=== PATIENT | female | born 2005 | race African-American/Black ===

== ENCOUNTER 2025-01-04 15:54 | Emergency (ER) | payer MEDICAID, OTHER ==
[~2025-01-04] VITALS: Ht 165.1 cm; Wt 88.7 kg
--- NOTE | 2025-01-04 16:19 | ED.PDOC ---
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 Patient reports using the restroom and when wiping, saw a moderate amount of blood in the tissue paper and in the toilet. Patient reports she is about 6 weeks , [facility] by [facility] and had a SERVICE ORDER EXPEDITER history of . Patient also complains of 5/10 right sided abdominal right upper quadrant and right flank burning/cramping, and mild dysuria for the past couple of days in which she told the staff at [facility] but was told it was normal due to . Patient denies passing any clots or tissue, denies having to use a pad, denies fever, chills, dysuria, nausea, vomiting or diarrhea. Patient denies any medical history or allergies. Chief Complaint: Vaginal Bleed Time Seen by MD: 16:07 Reviewed Notes: Nurses Notes, Medications, Allergies Allergies: Coded Allergies: NO KNOWN ALLERGIES (Unverified , 01/04/25) Home Meds Active Scripts Acetaminophen (Tylenol Extra Strength) 500 Mg Tab, 1000 MG PO Q6HP PRN, #30 TAB prn pain Prov:LEYDA PHILLIPS MD 01/04/25 Cephalexin Monohydrate (Cephalexin) 500 Mg Cap, 1 CAP PO QID for 10 Days, #40 CAP Prov:LEYDA PHILLIPS MD 01/04/25 Information Source: Patient Mode of Arrival: Ambulatory Timing: Hours Severity: Moderate Vaginal Discharge: None Vaginal Lesions: None Bleeding Quality: Dark Vaginal Mass: None Onset Of Mass/Bleeding: Spontaneous Sexual Activity: Last Consensual Arabi: Unknown Control: None History of: Current Blood Type: Unknown Associated Signs and Symptoms: Vaginal Bleeding, Abdominal Pain, Cramping Past Medical History PAST MEDICAL HISTORY: Denies Surgical History: Denies all surgeries SERVICE ORDER EXPEDITER History: No Pertinent SERVICE ORDER EXPEDITER History 1 Para 0 Family History Family History: Reviewed,noncontributory to illness Social History Smoker: Non-Smoker Alcohol: Denies ETOH Use Drugs: Denies Drug Use Lives In: Home Constitutional: denies: chills, diaphoresis, fatigue, fever, malaise, sweats, weakness, others EENTM: denies: blurred vision, double vision, ear bleeding, ear discharge, ear drainage, ear pain, ear ringing, eye pain, eye redness, hearing loss, mouth pain, mouth swelling, nasal discharge, nose bleeding, nose congestion, nose pain, photophobia, tearing, throat pain, throat swelling, voice changes, others Respiratory: denies: cough, hemoptysis, orthopnea, SOB at rest, shortness of breath, SOB with excertion, stridor, wheezing, others Cardiovascular: denies: chest pain, dizzy spells, diaphoresis, Dyspnea on exertion, edema, irregular heart beat, left arm pain, lightheadedness, palpitations, PND, syncope, others Gastrointestinal: reports: abdominal pain; denies: abdomen distended, blood streaked bowels, constipated, diarrhea, dysphagia, difficulty swallowing, hematemesis, melena, nausea, poor appetite, poor fluid intake, rectal bleeding, rectal pain, vomiting, others Genitourinary: reports: abnormal vagina bleeding, ; denies: burning, dyspareunia, dysuria, flank pain, frequency, hematuria, incontinence, pain, vagina discharge, urgency, others Neurological: denies: dizziness, fainting, headache, left sided numbness, left sided weakness, numbness, paresthesia, pre-existing deficit, right sided numbness, right sided weakness, seizure, speech problems, tingling, tremors, weakness, others Musculoskeletal: denies: back pain, gout, joint pain, joint swelling, muscle pain, muscle stiffness, neck pain, others Integumetry: denies: bruises, change in color, change in hair/nails, dryness, laceration, lesions, lumps, rash, wounds, others Allergic/Immunocompromised: denies: Difficulty Healing, Frequent Infections, Hives, Itching, others Hematologic/Lymphatic: denies: anemia, blood clots, easy bleeding, easy bruising, swollen glands, others Endocrine: denies: excessive hunger, excessive sweating, excessive thirst, excessive urination, flushing, intolerance to cold, intolerance to heat, unexplained weight gain, unexplained weight loss, others Psychiatric: denies: anxiety, bipolar disorder, depression, hopeless, panic disorder, schizophrenia, sleepless, suicidal, others All Other Systems: Reviewed and Negative Physical Exam General Appearance: No Apparent Distress, Obese HEENT: Other (Pupils and face symmetric. Moist mucous membranes.) Neck: Full Range of Motion, Normal Inspection Respiratory: Lungs Clear, No Accessory Muscle Use, No Respiratory Distress, Normal Breath Sounds Cardiovascular: No Edema, No JVD, Regular Rate/Rhythm Breast Exam: Deferred Gastrointestinal: RUQ, Soft, Tenderness (Right mid abdominal) Genitalia: Deferred Pelvic: Deferred Rectal: Deferred Extremities: Normal inspection, Normal range of motion, Non-tender, No pedal edema Neurologic: Alert (Oriented x4), Normal Affect, Normal Mood, Other (Ambulatory without difficulty) Cerebellar Function: NOT DONE Reflexes: NOT DONE Skin: Dry, Normal Color, Warm Lymphatic: NOT DONE Was a procedure done? Was a procedure done?: No Differential Diagnosis (SERVICE ORDER EXPEDITER) Vaginal Bleeding: - Complete, - Incomplete, - Inevitable, - Missed, Ectopic , Menstrual Bleeding, UTI X-Ray, Labs, Meds, VS Vital Signs Date Time Temp Pulse Resp B/P (MAP) Pulse Ox O2 Delivery O2 Flow Rate FiO2 01/04/25 20:24 99.0 76 23 113/76 (88) 98 99.0 01/04/25 20:23 20 98 Room Air* 0 21 01/04/25 16:10 98.2 83 18 140/94 (109) 96 98.2 Lab Test 01/04/25 16:40 01/04/25 16:10 Range/Units White Blood Count 9.1 4.4-10.8 10^3/uL Red Blood Count 5.14 4.0-5.20 10^6/uL Hemoglobin 14.1 12.2-16.2 g/dL Hematocrit 41.7 36.0-46.0 % Mean Corpuscular Volume 81.1 80.0-100.0 fL Mean Corpuscular Hemoglobin 27.5 L 28.0-32.0 pg Mean Corpuscular Hemoglobin Concent 33.9 32.0-36.0 g/dL Red Cell Distribution Width 13.5 11.8-14.3 % Platelet Count 298 140-450 10^3/uL Mean Platelet Volume 7.0 6.9-10.8 fL Neutrophils (%) (Auto) 62.2 37.0-80.0 % Lymphocytes (%) (Auto) 25.1 10.0-50.0 % Monocytes (%) (Auto) 9.5 0.0-12.0 % Eosinophils (%) (Auto) 2.7 0.0-7.0 % Basophils (%) (Auto) 0.5 0.0-2.0 % Neutrophils # (Auto) 5.7 1.6-8.6 10 ^3/uL Lymphocytes # (Auto) 2.3 0.4-5.4 10 ^3/uL Monocytes # (Auto) 0.9 0-1.3 10 ^3/uL Eosinophils # (Auto) 0.2 0-0.8 10 ^3/uL Basophils # (Auto) 0 0-0.2 10 ^3/uL Nucleated Red Blood Cells 0.1 % Sodium Level 137 136-145 mmol/L Potassium Level 3.7 3.5-5.1 mmol/L Chloride Level 105 98-107 mmol/L Carbon Dioxide Level 23 20-31 mmol/L Anion Gap 9 5-15 Blood Urea Nitrogen 7 L 9-23 mg/dL Creatinine 0.70 0.550-1.02 mg/dL Glomerular Filtration Rate Calc 127 >90 mL/min BUN/Creatinine Ratio 10.0 10.0-20.0 Serum Glucose 76 74-106 mg/dL Calcium Level 9.8 8.7-10.4 mg/dL Beta HCG, Quantitative 14254.8 H 1.5-4.2 mIU/mL Urine Color Light-yellow Yellow Urine Clarity Turbid H Clear Urine pH 7.0 5.0-9.0 Urine Specific Firestone 1.024 1.001-1.035 Urine Protein Trace H Negative Urine Ketones Negative Negative Urine Blood Negative Negative /uL Urine Nitrite Negative Negative Urine Bilirubin Negative Negative Urine Urobilinogen Normal Negative mg/dL Urine Leukocyte Esterase 3+ Negative /uL Urine RBC 6 0 - 4 /hpf Urine Microscopic WBC 115 H 0-5 /HPF Urine Squamous Epithelial Cells Few <5 /hpf Urine Bacteria Few H None Seen /hpf Urine Mucus Few None Seen Urine Glucose Normal Normal mg/dL Current Medications Medications (Trade) Dose Ordered Sig/Jeevan Route Start Time Stop Time Status Last Admin Ceftriaxone Sodium (Rocephin) 1,000 mg ONCE ONCE IM 01/04/25 18:00 01/04/25 18:01 DC 01/04/25 20:31 Lidocaine HCl (Xylocaine 1%) 2.1 ml ONCE ONCE IJ 01/04/25 20:30 01/04/25 20:31 DC 01/04/25 20:31 PROCEDURE(s): RTLQD - RIGHT LOWER QUAD REASON: RLQ r/o appy ORDER NUMBER(s): [id number], ACCESSION NUMBER(s): [id number] INDICATION: RLQ r/o appy TECHNIQUE: Graded compression technique along with Multiple real-time sonographic images were obtained for evaluation of the right lower quadrant. FINDINGS: The appendix was not visualized. No free fluid or lymph nodes are seen on this exam. IMPRESSION: Nonvisualization of the appendix, thus cannot exclude appendicitis. EDURE(s): OB4US - OB ULTRASOUND COMP LESS 14WKS REASON: 6 wk preg, vag bleed ORDER NUMBER(s): [id number], ACCESSION NUMBER(s): [id number] OB ULTRASOUND <14 WEEKS: HISTORY: 6 wk preg, vag bleed TECHNIQUE: Ultrasound Ob less than 14 weeks. Multiple real-time grayscale sonographic images of the pelvis with duplex Doppler color flow, spectral and M- mode analysis. TRANSDUCERS: Transabdominal FINDINGS: The uterus measures 8.2 x 4.1 x 6.2 cm. Endometrium 21 mm. The cervix not measured Right ovary measures 4 x 3.4 x 2 cm. Right ovarian volume is 14 cc with normal Doppler color flow Left ovary measures 3.5 x 3.4 x 3.2 cm. There is an anechoic mass in the left ovary measuring 1.8 x 1.7 x 1.5 cm. There is a volume of the left ovary is 20 cc. Normal Doppler color flow of the left ovary. Gestational sac noted in the uterus measuring 1.56 cm. This is consistent with 5 weeks 6 days. heart rate not detected at this time.. Yolk sac questionably seen. Amniotic fluid adequate IMPRESSION: 1. No pole or heart rate noted at this time. 2. Gestational sac is consistent with 6 weeks 1 day. X-Ray, Labs, Meds, VS Comment [age] year old female with history of current approximate 6 week brought in by self for evaluation of vaginal bleeding and dysuria Vitals remarkable for BP 140/94 Exam remarkable for right upper quadrant and right mid abdominal tenderness to palpation Rhythm strip independently interpreted by me: Sinus rhythm, rate 83, no ectopy. Right Lower quadrant ultrasound: IMPRESSION: Nonvisualization of the appendix, thus cannot exclude appendicitis. Ob ultrasound: IMPRESSION: 1. No pole or heart rate noted at this time. 2. Gestational sac is consistent with 6 weeks 1 day. Note, patient refused transvaginal ultrasound, so Ob ultrasound was performed transabdominally. CBC, basic metabolic panel unremarkable for any abnormality of acute significance. Serum quantitative hCG 15331.8, UA positive for 115 white blood cells, leukocyte esterase and few bacteria consistent with UTI Patient treated with the following in the ED: Tylenol 1 g p.o., Rocephin 1 g IM On re-evaluation, patient states she is comfortable. Vitals were stable. Repeat abdominal exam is benign. Workup findings could be consistent with early normal , ectopic or demise/miscarriage. Patient appears stable for discharge with close outpatient follow-up with marina manager in 2 days for repeat ultrasound and repeat serum quantitative hCG. Patient will be referred to Dr. Roche. Rx Keflex, Tylenol Time of 1ST Reevaluation: 16:18 Reevaluation 1ST: Unchanged Time of 2ND Reevaluation: 19:30 Reevaluation 2ND: Improved Patient Education/Counseling: Diagnosis, Treatment, Prognosis Family Education/Counseling: No Family Present Departure 1 Departure Time of Disposition: 17:50 Impression: Primary Impression: UTI (urinary tract infection) Qualified Codes: N39.0 - Urinary tract infection, site not specified; R31.9 - Hematuria, unspecified Additional Impression: Vaginal bleeding affecting early Disposition: 01 HOME / SELF CARE / HOMELESS Condition: Stable Referrals: YARELY ROCHE DO Additional Instructions: Your blood tests were unremarkable. Your urine test showed you have a urinary tract infection. Your did not show a inside the uterus, however it may be too early to see the . I have enclosed the report below. I have prescribed antibiotics and pain medication. Follow-up with your OBGYN in 1-2 days. If you do not have an OBGYN, follow-up with Dr. Roche establish care. [address] [address] Ph: [phone] DIAGNOSTIC IMAGING Diagnostic Imaging Report : [id number] Signed PATIENT: CARLTON SINCLAIR ACCT: [id number] UNIT: [id number] : 2005 LOC: ER ROOM / BED: / AGE / SEX: 19 / F ADM STATUS: REG ER SERVICE 1614 ORDERING PHYSICIAN: LEYDA PHILLIPS MD PROCEDURE(s): OB4US - OB ULTRASOUND COMP LESS 14WKS REASON: 6 wk preg, vag bleed ORDER NUMBER(s): [id number], ACCESSION NUMBER(s): [id number] OB ULTRASOUND <14 WEEKS: HISTORY: 6 wk preg, vag bleed TECHNIQUE: Ultrasound Ob less than 14 weeks. Multiple real-time grayscale sonographic images of the pelvis with duplex Doppler color flow, spectral and M- mode analysis. TRANSDUCERS: Transabdominal FINDINGS: The uterus measures 8.2 x 4.1 x 6.2 cm. Endometrium 21 mm. The cervix not measured Right ovary measures 4 x 3.4 x 2 cm. Right ovarian volume is 14 cc with normal Doppler color flow Left ovary measures 3.5 x 3.4 x 3.2 cm. There is an anechoic mass in the left ovary measuring 1.8 x 1.7 x 1.5 cm. There is a volume of the left ovary is 20 cc. Normal Doppler color flow of the left ovary. Gestational sac noted in the uterus measuring 1.56 cm. This is consistent with 5 weeks 6 days. heart rate not detected at this time.. Yolk sac questionably seen. Amniotic fluid adequate IMPRESSION: 1. No pole or heart rate noted at this time. 2. Gestational sac is consistent with 6 weeks 1 day. e-Prescriptions Acetaminophen (Tylenol Extra Strength) 500 Mg Tab 1000 MG PO Q6HP PRN, #30 TAB prn pain Prov: LEYDA PHILLIPS MD 01/04/25 Cephalexin Monohydrate (Cephalexin) 500 Mg Cap 1 CAP PO QID for 10 Days, #40 CAP Prov: LEYDA PHILLIPS MD 01/04/25 Discharged With: Relative Critical Care Note Critical Care Time?: No Stability Stability form required: No I personally scribed for LEYDA PHILLIPS MD ([facility] on 01/04/25 at 16:19. Electronically submitted by Anastasia Mcclain ([facility]). LEYDA PHILLIPS MD January 04, 2025 16:19
[2025-01-04 16:37] LABS: Urine Bacteria FEW /hpf (None Seen); Urine Blood Negative /uL (Negative); Urine Clarity Turbid (Clear); Urine Color Light-Yellow (Yellow); Urine Mucus FEW (None Seen); Urine Protein, UAD TRACE (Negative); Urine Specific Gravity 1.024 (1.001-1.035); Urine Squamous Epithelial Cell FEW /hpf (<5); Urine Urobilinogen Normal (Negative); Urine WBC 115 /HPF (0-5)
[2025-01-04 16:57] LABS: Basophils # (auto) 0 10 ^3/uL (0-0.2); Basophils % (auto) 0.5 % (0.0-2.0); Eosinophils # (auto) 0.2 10 ^3/uL (0-0.8); Eosinophils % (auto) 2.7 % (0.0-7.0); Hematocrit 41.7 % (36.0-46.0); Hemoglobin 14.1 g/dL (12.2-16.2); Lymphocytes # (auto) 2.3 10 ^3/uL (0.4-5.4); Lymphocytes % (auto) 25.1 % (10.0-50.0); Mean Corpuscular Hemoglobin 27.5 pg (28.0-32.0); Mean Corpuscular Hgb Conc. 33.9 g/dL (32.0-36.0); Mean Corpuscular Volume 81.1 fL (80.0-100.0); Monocytes # (auto) 0.9 10 ^3/uL (0-1.3); Monocytes % (auto) 9.5 % (0.0-12.0); Neutrophils # (auto) 5.7 10 ^3/uL (1.6-8.6); Neutrophils % (auto) 62.2 % (37.0-80.0); Nucleated Red Blood Cells % 0.1 %; Platelet Count (auto) 298 10^3/uL (140-450); Red Blood Cells 5.14 10^6/uL (4.0-5.20); Red Cell Distribution Width 13.5 % (11.8-14.3); White Blood Cell 9.1 10^3/uL (4.4-10.8)
[2025-01-04 17:04] LABS: Chloride 105 mmol/L (98-107); Potassium 3.7 mmol/L (3.5-5.1); Sodium 137 mmol/L (136-145)
[2025-01-04 17:05] LABS: Anion Gap 9 (5-15); Calcium 9.8 mg/dL (8.7-10.4); Carbon Dioxide 23 mmol/L (20-31)
[2025-01-04 17:10] LABS: Glucose 76 mg/dL (74-106)
[2025-01-04 17:19] LABS: Blood Urea Nitrogen 7 mg/dL (9-23)
[2025-01-04] MEDS ORDERED: CEPH500C PO (17:53)
[2025-01-04] MEDS ORDERED: ACET-1304 PO (17:53)
--- NOTE | 2025-01-04 19:17 | DVH ---
OB ULTRASOUND <14 WEEKS: HISTORY: 6 wk preg, vag bleed TECHNIQUE: Ultrasound Ob less than 14 weeks. Multiple real-time grayscale sonographic images of the pelvis with duplex Doppler color flow, spectral and M-mode analysis. TRANSDUCERS: Transabdominal FINDINGS: The uterus measures 8.2 x 4.1 x 6.2 cm. Endometrium 21 mm. The cervix not measured Right ovary measures 4 x 3.4 x 2 cm. Right ovarian volume is 14 cc with normal Doppler color flow Left ovary measures 3.5 x 3.4 x 3.2 cm. There is an anechoic mass in the left ovary measuring 1.8 x 1 .7 x 1.5 cm. There is a volume of the left ovary is 20 cc. Normal Doppler color flow of the left ov rosibel. Gestational sac noted in the uterus measuring 1.56 cm. This is consistent with 5 weeks 6 days. heart rate not detected at this time.. Yolk sac questionably seen. Amniotic fluid adequate IMPRESSION: 1. No pole or heart rate noted at this time. 2. Gestational sac is consistent with 6 weeks 1 day.
--- NOTE | 2025-01-04 19:19 | DVH ---
INDICATION: RLQ r/o appy TECHNIQUE: Graded compression technique along with Multiple real-time sonographic images were obtain ed for evaluation of the right lower quadrant. FINDINGS: The appendix was not visualized. No free fluid or lymph nodes are seen on this exam. IMPRESSION: Nonvisualization of the appendix, thus cannot exclude appendicitis.
[2025-01-04 20:23] VITALS: RESP 20; O2SAT 98
[2025-01-04 20:24] VITALS: BP 113/76; PULSE 76; RESP 23; TEMP 99; O2SAT 98
[2025-01-04] MEDS: ACETAMINOPHEN 500 MG TAB or CAP PO ONE (20:26)
[2025-01-04] MEDS: LIDOCAINE 1% HCL (LOCAL ANESTH.) INJ 20ML MDV IJ ONE (20:31)
[2025-01-04] MEDS: cefTRIAXone SOD 1,000 MG VL IM ONE (20:31)
== END 2025-01-04 20:36 | disposition home or self-care (01) ==
LOC: ER 15:54
DX: O23.41 Unspecified infection of urinary tract in pregnancy, first trimester (principal); O20.0 Threatened abortion; N39.0 Urinary tract infection, site not specified; O20.9 Hemorrhage in early pregnancy, unspecified; Z3A.01 Less than 8 weeks gestation of pregnancy; Z79.899 Other long term (current) drug therapy
CPT/HCPCS: 36415; 76705; 76801; 80048; 81001; 84702; 85025; 86900; 86901; 96372; 99285; J0696; J2003

== ENCOUNTER 2025-01-22 11:47 | Emergency (ER) | payer MEDICAID ==
[~2025-01-22] VITALS: Ht 162.6 cm; Wt 89.7 kg
[~2025-01-22 11:47] MED LIST: ACET-1304 PO; CEPH500C PO
[2025-01-22 12:15] LABS: Basophils # (auto) 0 10 ^3/uL (0-0.2); Basophils % (auto) 0.4 % (0.0-2.0); Eosinophils # (auto) 0.2 10 ^3/uL (0-0.8); Eosinophils % (auto) 3.1 % (0.0-7.0); Hematocrit 41.3 % (36.0-46.0); Hemoglobin 13.9 g/dL (12.2-16.2); Lymphocytes # (auto) 1.4 10 ^3/uL (0.4-5.4); Lymphocytes % (auto) 17.8 % (10.0-50.0); Mean Corpuscular Hemoglobin 27.7 pg (28.0-32.0); Mean Corpuscular Hgb Conc. 33.7 g/dL (32.0-36.0); Mean Corpuscular Volume 82.1 fL (80.0-100.0); Monocytes # (auto) 0.5 10 ^3/uL (0-1.3); Monocytes % (auto) 6.6 % (0.0-12.0); Neutrophils # (auto) 5.6 10 ^3/uL (1.6-8.6); Neutrophils % (auto) 72.1 % (37.0-80.0); Nucleated Red Blood Cells % 0.2 %; Platelet Count (auto) 289 10^3/uL (140-450); Red Blood Cells 5.03 10^6/uL (4.0-5.20); White Blood Cell 7.7 10^3/uL (4.4-10.8)
[2025-01-22] MEDS: SODIUM CHLORIDE 0.9% 1,000 ML IV ONE (12:39)
[2025-01-22] MEDS: ONDANSETRON HCL 4 MG/2 ML VIAL IV ONE (12:40)
[2025-01-22 12:41] VITALS: BP 112/76; PULSE 82; RESP 14; TEMP 98.1; O2SAT 98
--- NOTE | 2025-01-22 12:42 | ED.PDOC ---
WILDERNESS GUIDE HPI Comments A 19 YEAR OLD FEMALE PRESENTS TO THE ED WITH CHIEF COMPLAINT OF VAGINAL BLEEDING DURING . PATIENT REPORTS THAT SHE HAD BEEN EXPERIENCING A WEEK OF VAGINAL SPOTTING, BUT FOR THE PAST 3 DAYS IT STARTED TO BECOME MILD VAGINAL BLEEDING. PATIENT RELAYS THAT SHE IS ABOUT 8 WEEKS . PATIENT NOTES ASSOCIATED SYMPTOMS OF NAUSEA AND VOMITING. PATIENT DENIES ANY ABDOMINAL PAIN, DIZZINESS, FEVER, CHILLS, DYSURIA, HEMATURIA, OR ANY FURTHER SYMPTOMS AT THIS TIME. Chief Complaint: Vaginal Bleed Time Seen by MD: 12:39 Reviewed Notes: Nurses Notes, Medications, Allergies Allergies: Coded Allergies: NO KNOWN ALLERGIES (Unverified , 01/04/25) Home Meds Active Scripts Nitrofurantoin Monohydrate Mac (Macrobid) 100 Mg Cap, 100 MG PO BID, #16 CAP Prov:MARVA DIAZ 01/22/25 Ondansetron Odt 4MG Tab (ZOFRAN PO) 4 Mg Tb, 4 MG PO BID, #20 TAB ODT TAB-DISSOLVE IN MOUTH, THEN SWALLOW Prov:MARVA DIAZ 01/22/25 Acetaminophen (Tylenol Extra Strength) 500 Mg Tab, 1000 MG PO Q6HP PRN, #30 TAB prn pain Prov:LEYDA PHILLIPS MD 01/04/25 Cephalexin Monohydrate (Cephalexin) 500 Mg Cap, 1 CAP PO QID for 10 Days, #40 CAP Prov:LEYDA PHILLIPS MD 01/04/25 Information Source: Patient Mode of Arrival: Ambulatory Timing: Weeks Prehospital treatment: None Severity: Moderate Vaginal Discharge: None Vaginal Lesions: None Bleeding Quality: Bright Red Vaginal Mass: None Onset Of Mass/Bleeding: Spontaneous Sexual Activity: Last Consensual [place]: Unknown Control: None History of: Current Blood Type: Unknown Associated Signs and Symptoms: Vaginal Bleeding Past Medical History PAST MEDICAL HISTORY: Denies Surgical History: Denies all surgeries RANCH COOK History: No Pertinent RANCH COOK History Family History Family History: Reviewed,noncontributory to illness Social History Smoker: Non-Smoker Alcohol: Denies ETOH Use Drugs: Denies Drug Use Lives In: Home Constitutional: denies: chills, diaphoresis, fatigue, fever, malaise, sweats, weakness, others EENTM: denies: blurred vision, double vision, ear bleeding, ear discharge, ear drainage, ear pain, ear ringing, eye pain, eye redness, hearing loss, mouth pain, mouth swelling, nasal discharge, nose bleeding, nose congestion, nose pain, photophobia, tearing, throat pain, throat swelling, voice changes, others Respiratory: denies: cough, hemoptysis, orthopnea, SOB at rest, shortness of breath, SOB with excertion, stridor, wheezing, others Cardiovascular: denies: chest pain, dizzy spells, diaphoresis, Dyspnea on exertion, edema, irregular heart beat, left arm pain, lightheadedness, palpitations, PND, syncope, others Gastrointestinal: reports: nausea, vomiting; denies: abdomen distended, abdominal pain, blood streaked bowels, constipated, diarrhea, dysphagia, dif ficulty swallowing, hematemesis, melena, poor appetite, poor fluid intake, rectal bleeding, rectal pain, others Genitourinary: reports: abnormal vagina bleeding, ; denies: burning, dyspareunia, dysuria, flank pain, frequency, hematuria, incontinence, pain, vagina discharge, urgency, others Neurological: denies: dizziness, fainting, headache, left sided numbness, left sided weakness, numbness, paresthesia, pre-existing deficit, right sided numbness, right sided weakness, seizure, speech problems, tingling, tremors, weakness, others Musculoskeletal: denies: back pain, gout, joint pain, joint swelling, muscle pain, muscle stiffness, neck pain, others Integumetry: denies: bruises, change in color, change in hair/nails, dryness, laceration, lesions, lumps, rash, wounds, others Allergic/Immunocompromised: denies: Difficulty Healing, Frequent Infections, Hives, Itching, others Hematologic/Lymphatic: denies: anemia, blood clots, easy bleeding, easy bruising, swollen glands, others Endocrine: denies: excessive hunger, excessive sweating, excessive thirst, excessive urination, flushing, intolerance to cold, intolerance to heat, unexplained weight gain, unexplained weight loss, others Psychiatric: denies: anxiety, bipolar disorder, depression, hopeless, panic disorder, schizophrenia, sleepless, suicidal, others All Other Systems: Reviewed and Negative Physical Exam General Appearance: No Apparent Distress, Normal HEENT: Normal ENT Inspection, PERRL/EOMI, Pharynx Normal Neck: Full Range of Motion, Non-Tender, Normal, Normal Inspection Respiratory: Chest Non-Tender, Lungs Clear, No Accessory Muscle Use, No Respiratory Distress, Normal Breath Sounds Cardiovascular: No Edema, No JVD, No Murmur, No Gallop, Normal Peripheral Pulses, Regular Rate/Rhythm Breast Exam: Deferred Gastrointestinal: No Organomegaly, Non Tender, No Pulsatile Mass, Normal Bowel Sounds, Soft Genitalia: Deferred Pelvic: Normal External Exam, Vaginal Bleeding (MILD VAGINAL BLEEDING, NO ACTIVELY VAGINAL BLEEDING AND BLOOD CLOTS. ) Rectal: Deferred Extremities: No calf tenderness, Normal capillary refill, Normal inspection, Normal range of motion, Non-tender, No pedal edema Musculoskeletal : Apperance: Normal Neurologic: Alert, test bore helper II-XII nml as Tested, No Motor Deficits, Normal Affect, Normal Mood, No Sensory Deficits Cerebellar Function: Normal Reflexes: Normal Skin: Dry, Normal Color, Warm Peripheral Pulses: 2+ carotid (R), 2+ carotid (L) Lymphatic: No Adenopathy Was a procedure done? Was a procedure done?: No Differential Diagnosis (RANCH COOK) Vaginal Bleeding: - Threatened, Ectopic , UTI Vaginal Discharge: UTI X-Ray, Labs, Meds, VS Vital Signs Date Time Temp Pulse Resp B/P (MAP) Pulse Ox O2 Delivery O2 Flow Rate FiO2 01/22/25 12:41 98.1 82 14 112/76 (88) 98 98.1 01/22/25 12:41 82 14 98 Room Air 01/22/25 11:56 98.0 84 12 118/75 (89) 97 98.0 Lab Test 01/22/25 12:00 01/22/25 11:55 Range/Units White Blood Count 7.7 4.4-10.8 10^3/uL Red Blood Count 5.03 4.0-5.20 10^6/uL Hemoglobin 13.9 12.2-16.2 g/dL Hematocrit 41.3 36.0-46.0 % Mean Corpuscular Volume 82.1 80.0-100.0 fL Mean Corpuscular Hemoglobin 27.7 L 28.0-32.0 pg Mean Corpuscular Hemoglobin Concent 33.7 32.0-36.0 g/dL Red Cell Distribution Width 14.0 11.8-14.3 % Platelet Count 289 140-450 10^3/uL Mean Platelet Volume 7.0 6.9-10.8 fL Neutrophils (%) (Auto) 72.1 37.0-80.0 % Lymphocytes (%) (Auto) 17.8 10.0-50.0 % Monocytes (%) (Auto) 6.6 0.0-12.0 % Eosinophils (%) (Auto) 3.1 0.0-7.0 % Basophils (%) (Auto) 0.4 0.0-2.0 % Neutrophils # (Auto) 5.6 1.6-8.6 10 ^3/uL Lymphocytes # (Auto) 1.4 0.4-5.4 10 ^3/uL Monocytes # (Auto) 0.5 0-1.3 10 ^3/uL Eosinophils # (Auto) 0.2 0-0.8 10 ^3/uL Basophils # (Auto) 0 0-0.2 10 ^3/uL Nucleated Red Blood Cells 0.2 % Beta HCG, Quantitative 696994.4 H 1.5-4.2 mIU/mL Urine Color Light-yellow Yellow Urine Clarity Turbid H Clear Urine pH 7.0 5.0-9.0 Urine Specific [place] 1.021 1.001-1.035 Urine Protein Negative Negative Urine Ketones Negative Negative Urine Blood Trace H Negative /uL Urine Nitrite Negative Negative Urine Bilirubin Negative Negative Urine Urobilinogen Normal Negative mg/dL Urine Leukocyte Esterase 3+ Negative /uL Urine RBC 5 0 - 4 /hpf Urine Microscopic WBC 50 H 0-5 /HPF Urine Squamous Epithelial Cells Few <5 /hpf Urine Bacteria Few H None Seen /hpf Urine Mucus Few None Seen Urine Glucose Normal Normal mg/dL Current Medications Medications (Trade) Dose Ordered Sig/Jeevan Route Start Time Stop Time Status Last Admin Ondansetron HCl (Zofran Po) 4 mg ONCE ONCE PO 01/22/25 13:00 01/22/25 13:01 DC 01/22/25 13:18 OB US: [address] [address] Ph: [phone] DIAGNOSTIC IMAGING Diagnostic Imaging Report : [id number] Signed PATIENT: CARLTON SINCLAIR ACCT: [id number] UNIT: [id number] : 2005 LOC: ER ROOM / BED: / AGE / SEX: 19 / F ADM STATUS: REG ER SERVICE 1340 ORDERING PHYSICIAN: MARVA DIAZ PROCEDURE(s): OBTVG - OB TRANS VAGINAL US REASON: VAG BLEED ORDER NUMBER(s): [id number], ACCESSION NUMBER(s): [id number] OB ULTRASOUND <14 WEEKS: HISTORY: VAGINAL BLEEDING TECHNIQUE: Multiple real-time grayscale sonographic images of the pelvis with duplex Doppler color flow, spectral and M-mode analysis. TRANSDUCERS: Transabdominal and transvaginal COMPARISON: US OB ULTRASOUND COMP LESS 14WKS on DOS: 01/04/25 FINDINGS: The uterus measures 9.8 x 6.7 x 6.0 cm The cervix is not visualized Right ovary measures 3.1 x 1.9 x 2.3 cm with normal Doppler color flow. Left ovary measures 4.2 x 3.4 x 4.0 cm with normal Doppler color flow. Left corpus luteal ovarian cyst measures 1.9 cm. IUP single fetus at 8 weeks and 4 days average ultrasound age based on mean crown-rump length of 1.8 cm and gestational sac size of 3.5 cm heart rate detected at 170 beats per minute. Yolk sac is present. Amniotic fluid is subjectively within normal limits Mahnaz-gestational space: Small subchorionic hematoma is present measuring 1.7 cm. IMPRESSION: IUP single live fetus 8 weeks and 4 days AUA corresponding to an JOSE A of 08/30/2025. No acute abnormality detected. ATED BY: EDIN ALEJANDRO MD DICTATED DATE/TIME: 01/22/251412 SIGNED BY: EDIN ALEJANDRO MD SIGNED DATE/TIME: 01/22/25 141 CC: X-Ray, Labs, Meds, VS Comment EXTERNAL MEDICAL RECORDS REVIEWED: [NONE] INDEPENDENT HISTORIANS: [NONE] SOCIAL DETERMINANTS OF HEALTH: [NONE] LABS ORDERED: CBC, BETA HCG QUANT, UA REVIEWED AND INTERPRETED RESULTS: BHCG QUANT [id number]. LEUKO 3+ IMAGING ORDERED: OB US TREATMENTS ORDERED: ZOFRAN 4MG PO, NS 1L IV PROCEDURES PERFORMED: NONE CRITICAL CARE TIME: NONE I HAVE DISCUSSED THE PATIENT WITH THE ATTENDING PHYSICIAN DR. BONNER AND ROBBY TO WITH THE PATIENT'S PLAN OF CARE AND DISPOSITION. BASED ON HISTORY OF PRESENT ILLNESS, AND PHYSICAL EXAM, PATIENT WILL BE DISCHARGED HOME. DISCUSSED PLAN FOR DISCHARGE HOME WITH RX []. MEDICATION WARNINGS GIVEN. SHARED DECISION MAKING: DISCUSSED WITH PATIENT THAT THEIR WORKUP WAS NORMAL. PATIENT INSTRUCTED TO FOLLOW UP WITH PRIMARY CARE PROVIDER IN 1-2 DAYS FOR RE-EVALUATION OF SYMPTOMS. PATIENT VERBALIZES UNDERSTANDING TO RETURN TO ED FOR NEW OR WORSENING SYMPTOMS OR IF FOLLOW UP WITH PCP CANNOT BE OBTAINED. PATIENT FEELS COMFORTABLE GOING HOME AT THIS TIME. ALL QUESTIONS ADDRESSED AT TIME OF DISCHARGE. Images Reviewed?: Images reviewed and evaluated by me Time of 1ST Reevaluation: 14:22 Reevaluation 1ST: Unchanged Patient Education/Counseling: Diagnosis, Treatment, Need For Follow Up Family Education/Counseling: Diagnosis, Treatment, No Family Present Medical Screening: No EMC Exist At This Time Departure 1 Departure Time of Disposition: 14:30 Impression: Primary Impression: Vaginal bleeding Additional Impressions: Threatened in first trimester UTI (urinary tract infection) Qualified Codes: N30.00 - Acute cystitis without hematuria Disposition: HOME / SELF CARE / HOMELESS Condition: Stable Additional Instructions: FOLLOW-UP WITH WILDERNESS GUIDE IN 1 TO 2 DAYS. TAKE MEDICATIONS PRESCRIBED. RETURN TO ED FOR ANY NEW OR WORSENING SYMPTOMS. e-Prescriptions Nitrofurantoin Monohydrate Mac (Macrobid) 100 Mg Cap 100 MG PO BID, #16 CAP Prov: MARVA DIAZ 01/22/25 Ondansetron Odt 4MG Tab (ZOFRAN PO) 4 Mg Tb 4 MG PO BID, #20 TAB ODT TAB-DISSOLVE IN MOUTH, THEN SWALLOW Prov: MARVA DIAZ 01/22/25 Discharged With: Self Critical Care Note Critical Care Time?: No Stability Stability form required: No Heart Score Heart Score: Heart Score Response (Comments) Value History N/A 0 EKG N/A 0 Age N/A 0 Risk Factors N/A 0 Troponin N/A 0 Total 0 I personally scribed for MARVA DIAZ ([email or web address]) on 01/22/25 at 12:42. Electronically submitted by Owen Reis ([email or web address]). I personally scribed for MARVA DIAZ ([email or web address]) on 01/22/25 at 12:49. Electronically submitted by Owen Reis ([email or web address]). I personally scribed for MARVA DIAZ ([email or web address]) on 01/22/25 at 12:54. Electronically submitted by Owen Reis ([email or web address]). I personally scribed for MARVA DIAZ ([email or web address]) on 01/22/25 at 14:18. Electronically submitted by Owen Reis ([email or web address]). MARVA DIAZ January 22, 2025 12:42
[2025-01-22 12:50] LABS: Urine Bacteria FEW /hpf (None Seen); Urine Blood TRACE /uL (Negative); Urine Clarity Turbid (Clear); Urine Color Light-Yellow (Yellow); Urine Mucus FEW (None Seen); Urine Protein, UAD Negative (Negative); Urine Specific Gravity 1.021 (1.001-1.035); Urine Squamous Epithelial Cell FEW /hpf (<5); Urine Urobilinogen Normal (Negative); Urine WBC 50 /HPF (0-5)
[2025-01-22] MEDS: ONDANSETRON ODT 4 MG TAB PO ONE (13:18)
--- NOTE | 2025-01-22 14:15 | DVH ---
OB ULTRASOUND <14 WEEKS: HISTORY: VAGINAL BLEEDING TECHNIQUE: Multiple real-time grayscale sonographic images of the pelvis with duplex Doppler color f low, spectral and M-mode analysis. TRANSDUCERS: Transabdominal and transvaginal COMPARISON: US OB ULTRASOUND COMP LESS 14WKS on DOS: 01/04/25 FINDINGS: The uterus measures 9.8 x 6.7 x 6.0 cm The cervix is not visualized Right ovary measures 3.1 x 1.9 x 2.3 cm with normal Doppler color flow. Left ovary measures 4.2 x 3.4 x 4.0 cm with normal Doppler color flow. Left corpus luteal ovarian cys t measures 1.9 cm. IUP single fetus at 8 weeks and 4 days average ultrasound age based on mean crown-rump length of 1.8 cm and gestational sac size of 3.5 cm heart rate detected at 170 beats per minute. Yolk sac is present. Amniotic fluid is subjectively within normal limits Mahnaz-gestational space: Small subchorionic hematoma is present measuring 1.7 cm. IMPRESSION: IUP single live fetus 8 weeks and 4 days AUA corresponding to an JOSE A of 08/30/2025. No acute abnormality detected.
[2025-01-22] MEDS ORDERED: ZOFR4T PO (14:18)
[2025-01-22] MEDS ORDERED: NITR-87 PO (14:18)
== END 2025-01-22 14:24 | disposition home or self-care (01) ==
LOC: ER 11:49
DX: O20.0 Threatened abortion (principal); O23.41 Unspecified infection of urinary tract in pregnancy, first trimester; N39.0 Urinary tract infection, site not specified; O21.9 Vomiting of pregnancy, unspecified; Z3A.08 8 weeks gestation of pregnancy
CPT/HCPCS: 36415; 76801; 76817; 81001; 84702; 85025; 99284; Q0162

== ENCOUNTER 2025-06-24 14:01 | Emergency (ER) | payer MEDICAID ==
[~2025-06-24] VITALS: Ht 165.1 cm; Wt 84.2 kg
[~2025-06-24 14:01] MED LIST changes: +NITR-87 PO; +ZOFR4T PO
[2025-06-24] MEDS ORDERED: CEPH500C PO (15:58)
[2025-06-24] MEDS ORDERED: PROM1SOL4 PO (15:58)
[2025-06-24 16:01] VITALS: BP 107/76; PULSE 80; RESP 16; TEMP 98.1; O2SAT 97
--- NOTE | 2025-06-24 16:02 | ED.PDOC ---
SOB-HPI HPI Comments A 20 YEAR OLD FE/MALE PRESENTS TO THE ED WITH COMPLAINT OF SORE THROAT. PT HAS BEEN HAVING COUGH, NASAL CONGESTION AND SORE THROAT FOR THE PAST 2 DAYS. PT OTHERWISE HAS SICK CONTACTS OF CO-WORKERS. PATIENT DENIES FEVER, CHILLS, SHORTNESS OF BREATH, CHEST PAIN, ABDOMINAL PAIN, NAUSEA, VOMITING, HEADACHE, OR OTHER COMPLAINTS. NO OTHER SYMPTOMS OR MODIFYING FACTORS AT THIS TIME. PATIENT IS ALERT, ORIENTED X 4, AND HAS STEADY GAIT. Chief Complaint: Sore Throat Time Seen by MD: 15:45 Primary Care Provider: NONE Reviewed notes: Nurses Notes, Medications, Allergies Information Source: Patient Mode of Arrival: Ambulatory Brought in by: SELF Severity: Moderate Timing: Days Duration: Since onset, Days Context: Spontaneous Onset PE Risk Factors: None History of: Recent URI Prehospital treatment: None Modifying Factors: Nothing Associated Signs and Symptoms: Cough, Nasal Congestion, Sore Throat If cough with SOB: Productive Past Medical History PAST MEDICAL HISTORY: Denies Surgical History: Denies all surgeries FOREST MANAGEMENT TEACHER History: No Pertinent FOREST MANAGEMENT TEACHER History Family History Family History: Reviewed,noncontributory to illness Social History Smoker: Non-Smoker Alcohol: Denies ETOH Use Drugs: Denies Drug Use Lives In: Home Constitutional: denies: chills, diaphoresis, fatigue, fever, malaise, sweats, weakness, others EENTM: reports: nose congestion, throat pain, throat swelling; denies: blurred vision, double vision, ear bleeding, ear discharge, ear drainage, ear pain, ear ringing, eye pain, eye redness, hearing loss, mouth pain, mouth swelling, nasal discharge, nose bleeding, nose pain, photophobia, tearing, voice changes, others Respiratory: reports: cough; denies: hemoptysis, orthopnea, SOB at rest, shortness of breath, SOB with excertion, stridor, wheezing, others Cardiovascular: denies: chest pain, dizzy spells, diaphoresis, Dyspnea on exertion, edema, irregular heart beat, left arm pain, lightheadedness, palpitations, PND, syncope, others Gastrointestinal: denies: abdomen distended, abdominal pain, blood streaked bowels, constipated, diarrhea, dysphagia, difficulty swallowing, hematemesis, melena, nausea, poor appetite, poor fluid intake, rectal bleeding, rectal pain, vomiting, others Genitourinary: denies: abnormal vagina bleeding, burning, dyspareunia, dysuria, flank pain, frequency, hematuria, incontinence, pain, , vagina discharge , urgency, others Neurological: denies: dizziness, fainting, headache, left sided numbness, left sided weakness, numbness, paresthesia, pre-existing deficit, right sided numbness, right sided weakness, seizure, speech problems, tingling, tremors, weakness, others Musculoskeletal: denies: back pain, gout, joint pain, joint swelling, muscle pain, muscle stiffness, neck pain, others Integumetry: denies: bruises, change in color, change in hair/nails, dryness, laceration, lesions, lumps, rash, wounds, others Allergic/Immunocompromised: denies: Difficulty Healing, Frequent Infections, Hives, Itching, others Hematologic/Lymphatic: denies: anemia, blood clots, easy bleeding, easy bruising, swollen glands, others Endocrine: denies: excessive hunger, excessive sweating, excessive thirst, excessive urination, flushing, intolerance to cold, intolerance to heat, unexplained weight gain, unexplained weight loss, others Psychiatric: denies: anxiety, bipolar disorder, depression, hopeless, panic di sorder, schizophrenia, sleepless, suicidal, others All Other Systems: Reviewed and Negative Physical Exam General Appearance: No Apparent Distress, Normal HEENT: PERRL/EOMI, Pharyngeal Erythema (TONSILLAR SWELLING, NO EXUDATES. ), TMs Normal Neck: Full Range of Motion, Non-Tender, Normal, Normal Inspection Respiratory: Chest Non-Tender, Lungs Clear, No Accessory Muscle Use, No Respiratory Distress, Normal Breath Sounds Cardiovascular: No Edema, No JVD, No Murmur, No Gallop, Normal Peripheral Pulses, Regular Rate/Rhythm Breast Exam: Deferred Gastrointestinal: No Organomegaly, Non Tender, No Pulsatile Mass, Normal Bowel Sounds, Soft Genitalia: Deferred Pelvic: Deferred Rectal: Deferred Extremities: No calf tenderness, Normal capillary refill, Normal inspection, Normal range of motion, Non-tender, No pedal edema Musculoskeletal : Apperance: Normal Neurologic: Alert, salesperson shoes II-XII nml as Tested, No Motor Deficits, Normal Affect, Normal Mood, No Sensory Deficits Cerebellar Function: Normal Reflexes: Normal Skin: Dry, Normal Color, Warm Peripheral Pulses: 2+ carotid (R), 2+ carotid (L) Lymphatic: No Adenopathy Was a procedure done? Was a procedure done?: No Differential Dx Differential Diagnosis: Bronchitis, Pneumonia, Sinusitis, Otitis Media, Pharyngitis, URI X-Ray, Labs, Meds, VS Vital Signs Date Time Temp Pulse Resp B/P (MAP) Pulse Ox O2 Delivery O2 Flow Rate FiO2 06/24/25 16:01 98.1 80 16 107/76 (86) 97 98.1 06/24/25 14:02 97.6 91 15 118/66 98 97.6 X-Ray, Labs, Meds, VS Comment COURSE: EXTERNAL MEDICAL RECORDS REVIEWED: [NONE] INDEPENDENT HISTORIANS: [NONE] SOCIAL DETERMINANTS OF HEALTH: [NONE] LABS ORDERED: NONE REVIEWED AND INTERPRETED RESULTS: NONE IMAGING ORDERED: NONE TREATMENTS ORDERED: PROCEDURES PERFORMED: NONE CRITICAL CARE TIME: NONE I HAVE DISCUSSED THE PATIENT WITH THE ATTENDING PHYSICIAN, DR. BONNER, HE AGREES WITH THE PATIENT'S PLAN OF CARE AND DISPOSITION. BASED ON HISTORY OF PRESENT ILLNESS, AND PHYSICAL EXAM, PATIENT WILL BE DISCHARGED HOME. DISCUSSED PLAN FOR DISCHARGE HOME WITH RX [KEFLEX AND PHENERGAN DM ]. MEDICATION WARNINGS GIVEN. SHARED DECISION MAKING: DISCUSSED WITH PATIENT THAT THEIR WORKUP WAS NORMAL. PATIENT INSTRUCTED TO FOLLOW UP WITH PRIMARY CARE PROVIDER IN 1-2 DAYS FOR RE- EVALUATION OF SYMPTOMS. PATIENT VERBALIZES UNDERSTANDING TO RETURN TO ED FOR NEW OR WORSENING SYMPTOMS OR IF FOLLOW UP WITH PCP CANNOT BE OBTAINED. PATIENT FEELS COMFORTABLE GOING HOME AT THIS TIME. ALL QUESTIONS ADDRESSED AT TIME OF DISCHARGE. Time of 1ST Reevaluation: 16:05 Reevaluation 1ST: Unchanged Patient Education/Counseling: Diagnosis, Treatment Family Education/Counseling: No Family Present SEPSIS Sepsis Screen Date sepsis recognized/suspect: Jun 24, 2025 Time Sepsis recognized/suspect: 1404 Recent Procedure: No On Antibiotic Therapy: No Respiratory Rate >20: No Heart Rate >90: No Temp<36 C (96.8 F) or >38.3 C: No SBP <90 or MAP <65 mmHG: No New Acute Mental Status Change: No Is the patient on CPAP, BIPAP,: No Vital Signs Date Time Temp Pulse Resp B/P (MAP) Pulse Ox O2 Delivery O2 Flow Rate FiO2 06/24/25 16:01 98.1 80 16 107/76 (86) 97 98.1 06/24/25 14:02 97.6 91 15 118/66 98 97.6 Departure 1 Departure Time of Disposition: 16:06 Impression: Primary Impression: Tonsillitis Disposition: HOME / SELF CARE / HOMELESS Condition: Stable Additional Instructions: Discharge Note: Continue on your medications. Drink plenty of fluids. Follow up with your primary Dr. Take your prescriptions as ordered. If your condition becomes worse call and follow up with your primary DrAlexandrea for instructions or return to the ER if needed. Thank you for visiting [facility]. INSTRUCTIONS: FOLLOW-UP WITH PCP IN 1 TO 2 DAYS. TAKE MEDICATIONS PRESCRIBED. RETURN TO ED FOR ANY NEW OR WORSENING SYMPTOMS. e-Prescriptions Promethazine-Dm (Promethazine Dm 6.25-15 mg/5Ml) 1 Floresita Floresita 5 ML PO TID, #150 ML Prov: MARVA DIAZ 06/24/25 Cephalexin Monohydrate (Cephalexin) 500 Mg Cap 1 CAP PO QID, #28 CAP Prov: MARVA DIAZ 06/24/25 Discharged With: Self Critical Care Note Critical Care Time?: No Stability Stability form required: No Heart Score Heart Score: Heart Score Response (Comments) Value History N/A 0 EKG N/A 0 Age N/A 0 Risk Factors N/A 0 Troponin N/A 0 Total 0 I personally scribed for MARVA DIAZ ([email or web address]) on 06/24/25 at 16:02. Electronically submitted by Diane Escudero ([email or web address]). MARVA DIAZ Jun 24, 2025 16:02
== END 2025-06-24 16:01 | disposition home or self-care (01) ==
LOC: ER 14:01
DX: J03.90 Acute tonsillitis, unspecified (principal)

== ENCOUNTER 2025-07-05 12:55 | Emergency (ER) | payer MEDICAID ==
[~2025-07-05] VITALS: Ht 162.6 cm; Wt 83.8 kg
[~2025-07-05 12:55] MED LIST changes: +PROM1SOL4 PO
--- NOTE | 2025-07-05 13:31 | ED.PDOC ---
GI ASSESSMENT HPI Comments This is a 20 year old female presenting to the ED with chief complaint of abdominal pain. Patient reports that she is currently 6 weeks and she has been experiencing epigastric abdominal pain with associated nausea, vomiting, and radiation of pain to her back for the past 3 days. Patient relays that she has been unable to take in any food or water, feeling very dehydrated. Patient states that she is A1. Patient denies any diarrhea, dysuria, flank pain, hematuria, vaginal bleeding, fever, or chills. Chief Complaint: Time Seen by MD: 13:28 Primary Care Provider: NONE Reviewed Notes: Nurses Notes, Medications, Allergies Allergies: Coded Allergies: NO KNOWN ALLERGIES (Unverified , 01/04/25) Home Meds Active Scripts Nitrofurantoin Monohydrate Mac (Macrobid) 100 Mg Cap, 100 MG PO BID, #16 CAP Prov:JAJA LAINEZ MD 07/05/25 Ondansetron Odt 4MG Tab (ZOFRAN PO) 4 Mg Tb, 4 MG PO BID, #20 TAB ODT TAB-DISSOLVE IN MOUTH, THEN SWALLOW Prov:JAJA LAINEZ MD 07/05/25 Promethazine-Dm (Promethazine Dm 6.25-15 mg/5Ml) 1 Floresita Floresita, 5 ML PO TID, #150 ML Prov:MARVA DIAZ 06/24/25 Cephalexin Monohydrate (Cephalexin) 500 Mg Cap, 1 CAP PO QID, #28 CAP Prov:MARVA DIAZ 06/24/25 Acetaminophen (Tylenol Extra Strength) 500 Mg Tab, 1000 MG PO Q6HP PRN, #30 TAB prn pain Prov:LEYDA PHILLIPS MD 01/04/25 Cephalexin Monohydrate (Cephalexin) 500 Mg Cap, 1 CAP PO QID for 10 Days, #40 CAP Prov:LEYDA PHILLIPS MD 01/04/25 Information Source: Patient Mode of Arrival: Ambulatory Timing: Days Duration: Since onset Prehospital treatment: None Quality: Cramping Vomitus: Watery Stool: Normal Severity: Moderate Recent: None Recent Hx of: Current Pain Location: Epigastric Modifying Factors: Nothing Associated sign and symptoms: Nausea, Vomiting, Abdominal Pain Past Medical History PAST MEDICAL HISTORY: Denies Surgical History: Denies all surgeries STRUCTURAL ENGINEERING TECHNICIAN History: No Pertinent STRUCTURAL ENGINEERING TECHNICIAN History 2 Para 0 AB 1 Family History Family History: Reviewed,noncontributory to illness Social History Smoker: Non-Smoker Alcohol: Denies ETOH Use Drugs: Denies Drug Use Lives In: Home Constitutional: denies: chills, diaphoresis, fatigue, fever, malaise, sweats, weakness, others EENTM: denies: blurred vision, double vision, ear bleeding, ear discharge, ear drainage, ear pain, ear ringing, eye pain, eye redness, hearing loss, mouth pain, mouth swelling, nasal discharge, nose bleeding, nose congestion, nose pain, photophobia, tearing, throat pain, throat swelling, voice changes, others Respiratory: denies: cough, hemoptysis, orthopnea, SOB at rest, shortness of breath, SOB with excertion, stridor, wheezing, others Cardiovascular: denies: chest pain, dizzy spells, diaphoresis, Dyspnea on exertion, edema, irregular heart beat, left arm pain, lightheadedness, palpitations, PND, syncope, others Gastrointestinal: reports: abdominal pain, nausea, vomiting; denies: abdomen distended, blood streaked bowels, constipated, diarrhea, dysphagia, difficulty swallowing, hematemesis, melena, poor appetite, poor fluid intake, rectal bleeding, rectal pain, others Genitourinary: reports: ; denies: abnormal vagina bleeding, burning, dyspareunia, dysuria, flank pain, frequency, hematuria, incontinence, pain, vag sonu discharge, urgency, others Neurological: denies: dizziness, fainting, headache, left sided numbness, left sided weakness, numbness, paresthesia, pre-existing deficit, right sided numbness, right sided weakness, seizure, speech problems, tingling, tremors, weakness, others Musculoskeletal: reports: back pain; denies: gout, joint pain, joint swelling, muscle pain, muscle stiffness, neck pain, others Integumetry: denies: bruises, change in color, change in hair/nails, dryness, laceration, lesions, lumps, rash, wounds, others Allergic/Immunocompromised: denies: Difficulty Healing, Frequent Infections, Hives, Itching, others Hematologic/Lymphatic: denies: anemia, blood clots, easy bleeding, easy bruising, swollen glands, others Endocrine: denies: excessive hunger, excessive sweating, excessive thirst, excessive urination, flushing, intolerance to cold, intolerance to heat, unexplained weight gain, unexplained weight loss, others Psychiatric: denies: anxiety, bipolar disorder, depression, hopeless, panic disorder, schizophrenia, sleepless, suicidal, others All Other Systems: Reviewed and Negative Physical Exam General Appearance: No Apparent Distress HEENT: Normal ENT Inspection, Pharynx Normal, TMs Normal Neck: Full Range of Motion, Non-Tender, Normal, Normal Inspection Respiratory: Chest Non-Tender, Lungs Clear, No Accessory Muscle Use, No Respi ratory Distress, Normal Breath Sounds Cardiovascular: No Edema, No JVD, No Murmur, No Gallop, Normal Peripheral Pulses, Regular Rate/Rhythm Breast Exam: Deferred Gastrointestinal: No Organomegaly, Non Tender, No Pulsatile Mass, Normal Bowel Sounds, Soft Genitalia: Deferred Pelvic: Deferred Rectal: Deferred Extremities: No calf tenderness, Normal capillary refill, Normal inspection, Normal range of motion, Non-tender, No pedal edema Musculoskeletal : Apperance: Normal Neurologic: Alert, forensic analyst II-XII nml as Tested, No Motor Deficits, Normal Affect, Normal Mood, No Sensory Deficits Cerebellar Function: Normal Reflexes: Normal Skin: Dry, Normal Color, Warm Lymphatic: No Adenopathy Was a procedure done? Was a procedure done?: No GI differential Dx Differential Diagnosis: Gastritis/PUD, Gastroenteritis, UTI, Electrolyte Imbalance, Food Poisoning, Other (Hyperemesis gravidarum) X-Ray, Labs, Meds, VS Vital Signs Date Time Temp Pulse Resp B/P (MAP) Pulse Ox O2 Delivery O2 Flow Rate FiO2 07/05/25 14:38 76 18 98 Room Air 07/05/25 14:38 98.2 76 18 109/68 (82) 98 98.2 07/05/25 12:58 98.2 87 16 125/89 99 98.2 Lab Test 07/05/25 13:40 07/05/25 13:28 Range/Units White Blood Count 7.8 4.4-10.8 10^3/uL Red Blood Count 4.88 4.0-5.20 10^6/uL Hemoglobin 13.3 12.2-16.2 g/dL Hematocrit 39.3 36.0-46.0 % Mean Corpuscular Volume 80.5 80.0-100.0 fL Mean Corpuscular Hemoglobin 27.3 L 28.0-32.0 pg Mean Corpuscular Hemoglobin Concent 33.9 32.0-36.0 g/dL Red Cell Distribution Width 14.1 11.8-14.3 % Platelet Count 313 140-450 10^3/uL Mean Platelet Volume 6.6 L 6.9-10.8 fL Neutrophils (%) (Auto) 69.0 37.0-80.0 % Lymphocytes (%) (Auto) 19.2 10.0-50.0 % Monocytes (%) (Auto) 8.2 0.0-12.0 % Eosinophils (%) (Auto) 3.1 0.0-7.0 % Basophils (%) (Auto) 0.5 0.0-2.0 % Neutrophils # (Auto) 5.4 1.6-8.6 10 ^3/uL Lymphocytes # (Auto) 1.5 0.4-5.4 10 ^3/uL Monocytes # (Auto) 0.6 0-1.3 10 ^3/uL Eosinophils # (Auto) 0.2 0-0.8 10 ^3/uL Basophils # (Auto) 0 0-0.2 10 ^3/uL Nucleated Red Blood Cells 0.1 % Sodium Level 136 136-145 mmol/L Potassium Level 3.9 3.5-5.1 mmol/L Chloride Level 104 98-107 mmol/L Carbon Dioxide Level 24 20-31 mmol/L Anion Gap 8 5-15 Blood Urea Nitrogen < 5 L 9-23 mg/dL Creatinine 0.55 0.550-1.02 mg/dL Glomerular Filtration Rate Calc 134 >90 mL/min BUN/Creatinine Ratio 9.1 L 10.0-20.0 Serum Glucose 99 74-106 mg/dL Calcium Level 9.5 8.7-10.4 mg/dL Beta HCG, Quantitative 26020.9 H 1.5-4.2 mIU/mL Urine Color Yellow Yellow Urine Clarity Hazy H Clear Urine pH 7.5 5.0-9.0 Urine Specific [place] 1.022 1.001-1.035 Urine Protein Trace H Negative Urine Ketones Negative Negative Urine Blood Negative Negative /uL Urine Nitrite Negative Negative Urine Bilirubin Negative Negative Urine Urobilinogen Normal Negative mg/dL Urine Leukocyte Esterase 3+ Negative /uL Urine RBC 1 0 - 4 /hpf Urine Microscopic WBC 35 H 0-5 /HPF Urine Squamous Epithelial Cells Few <5 /hpf Urine Bacteria Few H None Seen /hpf Urine Glucose Normal Normal mg/dL Current Medications Medications (Trade) Dose Ordered Sig/Jeevan Route Start Time Stop Time Status Last Admin Sodium Chloride 1,000 ml @ 1,000 mls/hr Q1H ONCE IVB 07/05/25 13:30 07/05/25 14:29 DC 07/05/25 14:41 Ondansetron HCl (Zofran) 4 mg ONCE ONCE IV 07/05/25 13:30 07/05/25 13:31 DC 07/05/25 14:49 IV Hep-Lock was established The patient was given a 1 L bolus of normal saline The patient was given Zofran 4 mg IV push for the nausea and vomiting The urine test is positive for UTI The ultrasound of the gallbladder [place] [address].9 The patient's chemistry panel is within normal limits. The patient is feeling somewhat better The patient was given a prescription of Zofran as well as Macrobid for the UTI The ultrasound of the pelvis shows: Impression: Single live intrauterine with heart rate of 117 bpm. Estimated gestational age 6 weeks/ 3 days with estimated date of confinement 02/25/2026. The patient will follow up with her OBGYN. Images Reviewed?: Images reviewed and evaluated by me Time of 1ST Reevaluation: 16:34 Reevaluation 1ST: Improved Patient Education/Counseling: Diagnosis, Treatment, Prognosis, Need For Follow Up Family Education/Counseling: No Family Present SEPSIS Sepsis Screen Date sepsis recognized/suspect: Jul 05, 2025 Time Sepsis recognized/suspect: 1301 Recent Procedure: No On Antibiotic Therapy: No Respiratory Rate >20: No Heart Rate >90: No Temp<36 C (96.8 F) or >38.3 C: No SBP <90 or MAP <65 mmHG: No New Acute Mental Status Change: No Is the patient on CPAP, BIPAP,: No Physician Orders Ob Ultrasound Comp Less 14wks (07/05/25 13:23) Gallbladder (07/05/25 15:36) Ob Trans Vaginal Us (07/05/25 ) Vital Signs Date Time Temp Pulse Resp B/P (MAP) Pulse Ox O2 Delivery O2 Flow Rate FiO2 07/05/25 14:38 76 18 98 Room Air 11/2/25 14:38 98.2 76 18 109/68 (82) 98 98.2 07/05/25 12:58 98.2 87 16 125/89 99 98.2 Laboratory Tests Test 07/05/25 13:40 White Blood Count 7.8 10^3/uL (4.4-10.8) Medications Medications Dose Ordered Sig/Jeevan Route Start Time Stop Time Status Last Admin Dose Admin Ondansetron HCl 4 mg ONCE ONCE IV 07/05/25 13:30 07/05/25 13:31 DC 07/05/25 14:49 Sodium Chloride 1,000 ml @ 1,000 mls/hr Q1H ONCE IVB 07/05/25 13:30 07/05/25 14:29 DC 07/05/25 14:41 Departure 1 Departure Time of Disposition: 16:34 Impression: Primary Impression: Abdominal pain during Qualified Codes: O26.899 - Other specified related conditions, unspecified trimester; R10.9 - Unspecified abdominal pain Additional Impression: UTI (urinary tract infection) during Qualified Codes: O23.40 - Unspecified infection of urinary tract in , unspecified trimester Disposition: 01 HOME / SELF CARE / HOMELESS Condition: Fair e-Prescriptions Nitrofurantoin Monohydrate Mac (Macrobid) 100 Mg Cap 100 MG PO BID, #16 CAP Prov: JAJA LAINEZ MD 07/05/25 Ondansetron Odt 4MG Tab (ZOFRAN PO) 4 Mg Tb 4 MG PO BID, #20 TAB ODT TAB-DISSOLVE IN MOUTH, THEN SWALLOW Prov: JAJA LAINEZ MD 07/05/25 Discharged With: Self Critical Care Note Critical Care Time?: No Stability Stability form required: No Heart Score Heart Score: Heart Score Response (Comments) Value History N/A 0 EKG N/A 0 Age N/A 0 Risk Factors N/A 0 Troponin N/A 0 Total 0 I personally scribed for JAJA LAINEZ MD ([email or web address]) on 07/05/25 at 13:31. Electronically submitted by Owen Reis ([email or web address]). JAJA LAINEZ MD Jul 05, 2025 13:31
[2025-07-05 13:36] LABS: Urine Protein, UAD TRACE (Negative)
[2025-07-05 13:49] LABS: Hematocrit 39.3 % (36.0-46.0); Hemoglobin 13.3 g/dL (12.2-16.2); Mean Corpuscular Hemoglobin 27.3 pg (28.0-32.0); Mean Corpuscular Volume 80.5 fL (80.0-100.0); Nucleated Red Blood Cells % 0.1 %
[2025-07-05 13:55] LABS: Chloride 104 mmol/L (98-107); Potassium 3.9 mmol/L (3.5-5.1); Sodium 136 mmol/L (136-145)
[2025-07-05 13:56] LABS: Anion Gap 8 (5-15); Calcium 9.5 mg/dL (8.7-10.4); Carbon Dioxide 24 mmol/L (20-31)
[2025-07-05 14:01] LABS: Glucose 99 mg/dL (74-106)
[2025-07-05 14:02] LABS: BUN/Creatinine Ratio 9.1 (10.0-20.0); Blood Urea Nitrogen < 5 mg/dL (9-23)
[2025-07-05] MEDS: SODIUM CHLORIDE 0.9% 1,000 ML IVB ONE (14:41)
[2025-07-05] MEDS: ONDANSETRON HCL 4 MG/2 ML VIAL IV ONE (14:49)
--- NOTE | 2025-07-05 16:23 | DVH ---
CLINICAL INFORMATION: Pain and vomiting. TECHNIQUE: Grayscale sonographic imaging of the right upper quadrant of the abdomen was performed, a ssisted by color Doppler techniques. COMPARISON: None. FINDINGS: The gallbladder wall measures 1.7 mm in thickness, within normal limits. No stones are s een. Negative reported sonographic Carney's sign. The common bile duct measures 3.3 mm in diameter, within normal limits. The liver is normal in size and echotexture. No focal lesions. The pancreas is partly obscured, likely by bowel gas. The visualized portions appear normal. The right kidney measures 9.5 cm. There is no hydronephrosis. Right renal cortical echogenicity an d cortical thickness are within normal limits. IMPRESSION: 1. No sonographic evidence of acute cholecystitis. 2. No acute findings are seen in the right upper abdomen.
--- NOTE | 2025-07-05 16:24 | DVH ---
Procedure: US OB ULTRASOUND COMP LESS 14WKS Study Date and Requested Time: 07/05/2025 03:51 PM Study Description: US OB ULTRASOUND COMP LESS 14WKS History: pain Comparison: US OB ULTRASOUND COMP LESS 14WKS on DOS: 01/22/25, US OB ULTRASOUND COMP LESS 14WKS on DOS : 01/04/25 Technique: Multiple high resolution astudillo-scale images obtained of the uterus, fetus, and other gestat ional components with M-mode scanning for evaluation of heart rate. Findings: Single live intrauterine with gestational sac, yolk sac, and fetus visualized. heart rate of 117 bpm. Estimated gestational age 6 weeks/ 3 days based on mean gestational sac diameter of 2.09 cm and crown-rump length of 0.57 cm. Uterus measures 11.2 x 6.9 x 7.8 cm in size. Cervical os appears closed. Right ovary measures 3.1 x 2.6 x 2.6 cm. Left ovary measures 2.9 x 2.4 x 1.7 cm. Normal ovarian color Doppler flow bilaterally. No evidence of cystic or solid ovarian lesions. No evidence of free fluid in the cul-de-sac. Impression: Single live intrauterine with heart rate of 117 bpm. Estimated gestational age 6 week s/ 3 days with estimated date of confinement 02/25/2026.
[2025-07-05] MEDS ORDERED: NITR-87 PO (16:43)
[2025-07-05] MEDS ORDERED: ZOFR4T PO (16:43)
[2025-07-05 17:19] VITALS: BP 136/78; PULSE 78; RESP 16; TEMP 98.7; O2SAT 94
== END 2025-07-05 17:21 | disposition home or self-care (01) ==
LOC: ER 12:55
DX: O20.0 Threatened abortion (principal); O23.41 Unspecified infection of urinary tract in pregnancy, first trimester; N39.0 Urinary tract infection, site not specified; Z79.899 Other long term (current) drug therapy; Z3A.01 Less than 8 weeks gestation of pregnancy
CPT/HCPCS: 36415; 76705; 76801; 76817; 80048; 81001; 84702; 85025; 96361; 96374; 99285; J2405; J7030

== ENCOUNTER 2025-08-20 19:41 | Emergency (ER) | payer MEDICAID ==
[~2025-08-20] VITALS: Ht 160 cm; Wt 82.3 kg
--- NOTE | 2025-08-20 20:12 | ED.PDOC ---
CREAM DUMPER HPI Comments 20 y/o F, presents to the ED for CC of vaginal bleeding. Patient states, she is currently [id number] and has been experiencing increased vaginal bleeding onset, today (08/20/25). Patient reports, associated symptoms of abdominal cramping. Patient describes, bleeding quality to be heavy and clotted in appearance. Patient denies any trauma, injury, fall, nausea, vomiting, or recent intercourse. No other symptoms or modifying factors are present at this time. Chief Complaint: Vaginal Bleed Time Seen by MD: 20:05 Reviewed Notes: Nurses Notes, Medications, Allergies Allergies: Coded Allergies: NO KNOWN ALLERGIES (Unverified , 01/04/25) Home Meds Active Scripts Nitrofurantoin Monohydrate Mac (Macrobid) 100 Mg Cap, 100 MG PO BID, #16 CAP Prov:JAJA LAINEZ MD 08/20/25 Ondansetron Odt 4MG Tab (ZOFRAN PO) 4 Mg Tb, 4 MG PO BID, #20 TAB ODT TAB-DISSOLVE IN MOUTH, THEN SWALLOW Prov:JAJA LAINEZ MD 07/05/25 Promethazine-Dm (Promethazine Dm 6.25-15 mg/5Ml) 1 Floresita Floresita, 5 ML PO TID, #150 ML Prov:MARVA DIAZ 06/24/25 Cephalexin Monohydrate (Cephalexin) 500 Mg Cap, 1 CAP PO QID, #28 CAP Prov:MARVA DIAZ 06/24/25 Acetaminophen (Tylenol Extra Strength) 500 Mg Tab, 1000 MG PO Q6HP PRN, #30 TAB prn pain Prov:LEYDA PHILLIPS MD 01/04/25 Cephalexin Monohydrate (Cephalexin) 500 Mg Cap, 1 CAP PO QID for 10 Days, #40 CAP Prov:LEYDA PHILLIPS MD 01/04/25 Information Source: Patient Mode of Arrival: Ambulatory Timing: Days Prehospital treatment: None Severity: Moderate Vaginal Discharge: None Bleeding Quality: Dark, Clotted Onset Of Mass/Bleeding: Spontaneous Sexual Activity: Last Consensual [place]: Unknown History of: Current Blood Type: Unknown Associated Signs and Symptoms: Vaginal Bleeding, Cramping Past Medical History PAST MEDICAL HISTORY: Denies Surgical History: Denies all surgeries JIG AND FIXTURE MAKER History: No Pertinent JIG AND FIXTURE MAKER History Family History Family History: Reviewed,noncontributory to illness Social History Smoker: Non-Smoker Alcohol: Denies ETOH Use Drugs: Denies Drug Use Lives In: Home Constitutional: denies: chills, diaphoresis, fatigue, fever, malaise, sweats, weakness, others EENTM: denies: blurred vision, double vision, ear bleeding, ear discharge, ear drainage, ear pain, ear ringing, eye pain, eye redness, hearing loss, mouth pain, mouth swelling, nasal discharge, nose bleeding, nose congestion, nose pain, photophobia, tearing, throat pain, throat swelling, voice changes, others Respiratory: denies: cough, hemoptysis, orthopnea, SOB at rest, shortness of breath, SOB with excertion, stridor, wheezing, others Cardiovascular: denies: chest pain, dizzy spells, diaphoresis, Dyspnea on exertion, edema, irregular heart beat, left arm pain, lightheadedness, palpitations, PND, syncope, others Gastrointestinal: reports: others (abdominal cramping); denies: abdomen distended, abdominal pain, blood streaked bowels, constipated, diarrhea, dysphagia, difficulty swallowing, hematemesis, melena, nausea, poor appetite, poor fluid intake, rectal bleeding, rectal pain, vomiting Genitourinary: reports: abnormal vagina bleeding; denies: burning, dyspareunia, dysuria, flank pain, frequency, hematuria, incontinence, pain, , vagina discharge, urgency, others Neurological: denies: dizziness, fainting, headache, left sided numbness, left sided weakness, numbness, paresthesia, pre-existing deficit, right sided numbness, right sided weakness, seizure, speech problems, tingling, tremors, weakness, others Musculoskeletal: denies: back pain, gout, joint pain, joint swelling, muscle pain, muscle stiffness, neck pain, others Integumetry: denies: bruises, change in color, change in hair/nails, dryness, laceration, lesions, lumps, rash, wounds, others Allergic/Immunocompromised: denies: Difficulty Healing, Frequent Infections, H vladimir, Itching, others Hematologic/Lymphatic: denies: anemia, blood clots, easy bleeding, easy bruising, swollen glands, others Endocrine: denies: excessive hunger, excessive sweating, excessive thirst, excessive urination, flushing, intolerance to cold, intolerance to heat, unexplained weight gain, unexplained weight loss, others Psychiatric: denies: anxiety, bipolar disorder, depression, hopeless, panic disorder, schizophrenia, sleepless, suicidal, others All Other Systems: Reviewed and Negative Physical Exam General Appearance: Mild Distress, Normal HEENT: Normal ENT Inspection, Pharynx Normal, TMs Normal Neck: Full Range of Motion, Non-Tender, Normal, Normal Inspection Respiratory: Chest Non-Tender, Lungs Clear, No Accessory Muscle Use, No Respiratory Distress, Normal Breath Sounds Cardiovascular: No Edema, No JVD, No Murmur, No Gallop, Normal Peripheral Pulses, Regular Rate/Rhythm Breast Exam: Deferred Gastrointestinal: No Organomegaly, Non Tender, No Pulsatile Mass, Normal Bowel Sounds, Soft Genitalia: Deferred Pelvic: Deferred Rectal: Deferred Extremities: No calf tenderness, Normal capillary refill, Normal inspection, Normal range of motion, Non-tender, No pedal edema Musculoskeletal : Apperance: Normal Neurologic: Alert, slab off mill tender II-XII nml as Tested, No Motor Deficits, Normal Affect, Normal Mood, No Sensory Deficits Cerebellar Function: Normal Reflexes: Normal Skin: Dry, Normal Color, Warm Lymphatic: No Adenopathy Was a procedure done? Was a procedure done?: No Differential Diagnosis (JIG AND FIXTURE MAKER) Vaginal Bleeding: - Incomplete, - Inevitable X-Ray, Labs, Meds, VS Vital Signs Date Time Temp Pulse Resp B/P (MAP) Pulse Ox O2 Delivery O2 Flow Rate FiO2 08/20/25 19:51 97.6 90 18 116/86 100 97.6 Lab Test 08/20/25 20:37 08/20/25 20:10 Range/Units Urine Color Light-yellow Yellow Urine Clarity Turbid H Clear Urine pH 6.5 5.0-9.0 Urine Specific [place] 1.020 1.001-1.035 Urine Protein Negative Negative Urine Ketones Negative Negative Urine Blood 3+ H Negative /uL Urine Nitrite Negative Negative Urine Bilirubin Negative Negative Urine Urobilinogen Normal Negative mg/dL Urine Leukocyte Esterase 3+ Negative /uL Urine RBC 32 0 - 4 /hpf Urine Microscopic WBC 21 H 0-5 /HPF Urine Squamous Epithelial Cells Few <5 /hpf Urine Amorphous Crystals Few None Seen /hpf Urine Bacteria Few H None Seen /hpf Urine Hyaline Casts Few 0 - 2 /lpf Urine Mucus Few None Seen Urine Glucose Normal Normal mg/dL Beta HCG, Quantitative 917627.8 H 1.5-4.2 mIU/mL Ultrasound of the pelvis shows: IMPRESSION: 1. Single viable gestation with normal cardiac heart rate. 2. Possible small subchorionic hemorrhage measuring 2.5 x 1.5 x 1.9 cm versus prominent placenta graf. The urine test is positive for UTI The patient is being placed on Macrobid The quantitative hCG is [id number] At this time, the patient is discharged and will follow up with the OBGYN Images Reviewed?: Images reviewed and evaluated by me Time of 1ST Reevaluation: 20:35 Reevaluation 1ST: Unchanged Patient Education/Counseling: Diagnosis, Treatment, Prognosis, Need For Follow Up Family Education/Counseling: Diagnosis, Treatment, Prognosis, Need For Follow Up Departure 1 Departure Time of Disposition: 21:18 Impression: Primary Impression: Threatened in first trimester Additional Impression: UTI (urinary tract infection) during Qualified Codes: O23.40 - Unspecified infection of urinary tract in , unspecified trimester Disposition: 01 HOME / SELF CARE / HOMELESS Condition: Fair e-Prescriptions Nitrofurantoin Monohydrate Mac (Macrobid) 100 Mg Cap 100 MG PO BID, #16 CAP Prov: JAJA LAINEZ MD 08/20/25 Discharged With: Self Critical Care Note Critical Care Time?: No Stability Stability form required: No Heart Score Heart Score: Heart Score Response (Comments) Value History N/A 0 EKG N/A 0 Age N/A 0 Risk Factors N/A 0 Troponin N/A 0 Total 0 I personally scribed for JAJA LAINEZ MD ([email or web address]) on 08/20/25 at 20:12. Electronically submitted by Nga Mae ([email or web address]). JAJA LAINEZ MD Aug 20, 2025 20:12
--- NOTE | 2025-08-20 21:02 | DVH ---
EXAM: US OB ULTRASOUND COMP LESS 14WKS HISTORY:: pain and bleeding COMPARISON: US OB ULTRASOUND COMP LESS 14WKS on DOS: 07/05/25 TECHNIQUE:: Transabdominal and endovaginal real time astudillo scale, color, and doppler evaluation. Permanent images are maintained in the patient record. FINDINGS: Uterus measures 13.6 x 8.7 x 10 cm. Gestational sac measures 7.4 cm. Normal cardiac heart rate 159 beats per minute. pole measures 7.2 cm corresponding with 13 weeks and 3 days. Estimated due date 02/22/25. Average gestational age 13 weeks and 3 days. Possible small subchorionic hemorrhage measuring 2.5 x 1.5 x 1.9 cm versus prominent placenta graf. Bilateral ovaries are not well visualized. IMPRESSION: 1. Single viable gestation with normal cardiac heart rate. 2. Possible small subchorionic hemorrhage measuring 2.5 x 1.5 x 1.9 cm versus prominent placenta graf.
[2025-08-20 21:14] LABS: Urine Amorphous Crystal FEW /hpf (None Seen); Urine Protein, UAD Negative (Negative)
[2025-08-20 21:39] VITALS: BP 123/77; TEMP 98.4
[2025-08-20 22:20] VITALS: PULSE 86; RESP 20; O2SAT 97
== END 2025-08-20 22:28 | disposition home or self-care (01) ==
LOC: ER 19:41
DX: O20.0 Threatened abortion (principal); O23.41 Unspecified infection of urinary tract in pregnancy, first trimester; N39.0 Urinary tract infection, site not specified; Z3A.13 13 weeks gestation of pregnancy; Z79.899 Other long term (current) drug therapy
CPT/HCPCS: 36415; 76801; 81001; 84702